=== PATIENT | male | born 1955 | race Caucasian/White ===

== ENCOUNTER 2018-10-03 10:11 | Day surgery (SDC) | payer OTHER ==
[~2018-10-03 10:11] MED LIST: BESIFLOXACIN HCL 0.6% OPH SUSP 5 ML BOTTLE OD PRN; CHONDR SU A NA/HYALUR INTRAOC KIT (SURGICARE) ONE; CYCLOPENTOLATE 0.2%/PHENYLEPHRINE 1% OPH SOLN 2 ML OD PRN; EPINEPHRINE INJ/PF 1 MG/1 ML AMPULE ONE; KETOROLAC TROMETHAMINE 0.45% 4 DROP/0.4 ML DROPERETTE OD PRN; LIDOCAINE 1% INJ-PF (10 MG/ML) 30 ML SDV ONE; TETRACAINE HCL 0.5% OPH SOLN 0.6 ML DROPERETTE OD PRN; TOBRAMYCIN SULFATE/DEXAMETH OPH OINTMENT 3.5 GM ONE; TROPICAMIDE 1% OPH SOLN 3 ML OD PRN
== END 2018-10-03 11:03 | disposition home or self-care (01) ==
LOC: SC 10:11
PROVIDERS: ATTEND Ophthalmology
DX: R69 Illness, unspecified (principal)
CPT/HCPCS: J0171; J3490

== ENCOUNTER 2018-10-17 08:11 | Day surgery (SDC) | payer OTHER ==
[~2018-10-17 08:11] MED LIST changes: -BESIFLOXACIN HCL 0.6% OPH SUSP 5 ML BOTTLE OD PRN; -CHONDR SU A NA/HYALUR INTRAOC KIT (SURGICARE) ONE; -CYCLOPENTOLATE 0.2%/PHENYLEPHRINE 1% OPH SOLN 2 ML OD PRN; -EPINEPHRINE INJ/PF 1 MG/1 ML AMPULE ONE; -LIDOCAINE 1% INJ-PF (10 MG/ML) 30 ML SDV ONE; -TETRACAINE HCL 0.5% OPH SOLN 0.6 ML DROPERETTE OD PRN; -TOBRAMYCIN SULFATE/DEXAMETH OPH OINTMENT 3.5 GM ONE; -TROPICAMIDE 1% OPH SOLN 3 ML OD PRN
[2018-10-17] MEDS: TETRACAINE HCL 0.5% OPH SOLN 0.6 ML DROPERETTE OD PRN ×4 (08:58→09:37)
[2018-10-17] MEDS: TROPICAMIDE 1% OPH SOLN 3 ML OD PRN ×3 (08:59→09:22)
[2018-10-17] MEDS: CYCLOPENTOLATE 0.2%/PHENYLEPHRINE 1% OPH SOLN 2 ML OD PRN ×3 (08:59→09:22)
[2018-10-17] MEDS: BESIFLOXACIN HCL 0.6% OPH SUSP 5 ML BOTTLE OD PRN ×4 (08:59→10:02)
[2018-10-17] MEDS ORDERED: MIDAZOLAM 2 MG/2 ML INJ ONE (09:44)
[2018-10-17] MEDS ORDERED: FENTANYL CITRATE INJ/PF 100 MCG/2 ML AMPUL ONE (09:45)
[2018-10-17] MEDS: CHONDR SU A NA/HYALUR INTRAOC KIT (SURGICARE) ONE ×2 (09:49)
[2018-10-17] MEDS: EPINEPHRINE INJ/PF 1 MG/1 ML AMPULE ONE ×2 (09:49)
[2018-10-17] MEDS: LIDOCAINE 1% INJ-PF (10 MG/ML) 30 ML SDV ONE ×2 (09:49)
[2018-10-17] MEDS: TOBRAMYCIN SULFATE/DEXAMETH OPH OINTMENT 3.5 GM ONE ×2 (10:02)
== END 2018-10-17 10:48 | disposition home or self-care (01) ==
LOC: SC 08:11
PROVIDERS: ATTEND Ophthalmology
DX: H25.11 Age-related nuclear cataract, right eye (principal)
CPT/HCPCS: 66984; V2632; J2250; J3490 ×3; J0171; J3010; 142

== ENCOUNTER 2018-10-31 10:50 | Day surgery (SDC) | payer OTHER ==
[~2018-10-31 10:50] MED LIST changes: +BESIFLOXACIN HCL 0.6% OPH SUSP 5 ML BOTTLE OS PRN; +BUPIVACAINE HCL 0.75% INJ/PF (7.5 MG/1 ML) 10 ML SDV OS PRN; +CHONDR SU A NA/HYALUR INTRAOC KIT (SURGICARE) ONE; +CYCLOPENTOLATE 0.2%/PHENYLEPHRINE 1% OPH SOLN 2 ML OS PRN; +DORZOLAMIDE HCL 2%/TIMOLOL MALEAT 0.5% OPH SOLN 10 ML OS PRN; +EPINEPHRINE INJ/PF 1 MG/1 ML AMPULE ONE; -KETOROLAC TROMETHAMINE 0.45% 4 DROP/0.4 ML DROPERETTE OD PRN; +KETOROLAC TROMETHAMINE 0.45% 4 DROP/0.4 ML DROPERETTE OS PRN; +LIDOCAINE 1% INJ-PF (10 MG/ML) 30 ML SDV ONE; +LIDOCAINE 4% INJ/PF (40 MG/ML) 5 ML AMPUL OS PRN; +TETRACAINE HCL 0.5% OPH SOLN 0.6 ML DROPERETTE OS PRN; +TOBRAMYCIN SULFATE/DEXAMETH OPH OINTMENT 3.5 GM ONE; +TROPICAMIDE 1% OPH SOLN 3 ML OS PRN
--- NOTE | 2018-10-31 15:46 | EKG REPORT ---
SEVERITY:- ABNORMAL ECG - ATRIAL FIBRILLATION, V-RATE 50-69 VENTRICULAR PREMATURE COMPLEX : Confirmed by: Mac Bazan MD 31-Oct-2018 15:45:48
== END 2018-10-31 12:20 | disposition home or self-care (01) ==
LOC: SC 10:50
PROVIDERS: ATTEND Ophthalmology
DX: I49.3 Ventricular premature depolarization (principal); I48.91 Unspecified atrial fibrillation
CPT/HCPCS: 93005; 93010; J0171; J3490

== ENCOUNTER 2018-11-14 13:51 | Emergency (ER) | payer OTHER ==
--- NOTE | 2018-11-14 14:20 | ER Document Report ---
ED Medical Screen (RME) - General Chief Complaint: Groin Pain Stated Complaint: SICK Time Seen by Provider: 11/14/18 14:18 Primary Care Provider: CESAR BARRERA [Primary Care Provider] - Follow up as needed Mode of Arrival: Ambulatory Information source: Patient Notes: Patient states he was sent here for evaluation of swollen area to right groin. Patient states he has had the swollen area for the past 3 weeks. Patient states pain comes and goes. Patient was told that he needed to be evaluated for hernia. Patient denies any testicular pain swelling, penile drainage or discharge. Patient denies any abdominal tenderness. I have greeted and performed a rapid initial assessment of this patient. A comprehensive ED assessment and evaluation of the patient, analysis of test results and completion of the medical decision making process will be conducted by additional ED providers. TRAVEL OUTSIDE OF THE [place] IN LAST 30 DAYS: No - Related Data Allergies/Adverse Reactions: No Known Allergies Allergy (Verified 11/14/18 14:16) Past Medical History - Social History Chew tobacco use (# tins/day): No Frequency of alcohol use: None Drug Abuse: None - Past Medical History Cardiac Medical History: Denies: Hx Heart Attack, Hx Hypertension Pulmonary Medical History: Denies: Hx Asthma Neurological Medical History: Denies: Hx Cerebrovascular Accident, Hx Seizures Renal/ Medical History: Denies: Hx Peritoneal Dialysis GI Medical History: Denies: Hx Hepatitis, Hx Hiatal Hernia, Hx Ulcer Infectious Medical History: Denies: Hx Hepatitis Past Surgical History: Denies: Hx Open Heart Surgery, Hx Pacemaker Physical Exam - General Notes: Concerned about swelling to right inguinal area, area is nontender this time Doctor's Discharge - Discharge Referrals: BRUCE,CESAR [Primary Care Provider] - Follow up as needed
--- NOTE | 2018-11-14 19:45 | RADIOLOGY REPORT (SQ) ---
EXAM DESCRIPTION: U/S ABDOMEN LIMITED W/O DOP COMPLETED DATE/TIME: 11/14/2018 7:26 pm REASON FOR STUDY: right groin pain, r/o hernia COMPARISON: None. TECHNIQUE: Dynamic and static grayscale images acquired of the localized site of clinical concern an d recorded on PACS. Additional selected color Doppler and spectral images recorded. SITE OF CONCERN: Right groin LIMITATIONS: None. FINDINGS: SKIN AND SUBCUTANEOUS TISSUES: No masses. No fluid collections. No edema. No foreign julio s. DEEP SOFT TISSUES/MUSCLES: No demonstrated fascial discontinuity despite provocative maneuvers. No m asses. VASCULAR: No areas of abnormal vascularity. OTHER: No other significant finding. IMPRESSION: No evidence of direct or indirect inguinal hernia. TECHNICAL DOCUMENTATION: JOB ID: [id number] [employer]- All Rights Reserved Reading location - IP/workstation name: [email or web address]
--- NOTE | 2018-11-14 19:57 | ER Document Report ---
ED General - General Chief Complaint: Groin Pain Stated Complaint: SICK Time Seen by Provider: 11/14/18 14:18 Primary Care Provider: PRIYANK COOMBS MD [[facility] ST[facility]] - Follow up as needed [facility] [[facility] - Follow up as needed Mode of Arrival: Ambulatory Notes: Patient is a 63-year-old male presents to the emergency department for generalized right groin pain. States has had this pain intermittently for the last 3 weeks. [facility] and [facility] told him he had to come to the emergency room. Patient's denying any dysuria, testic ular pain, redness, swelling. He is also denying any penile discharge. Patient denies any abdominal pain. Denies any heavy lifting, twisting, movement, trauma. TRAVEL OUTSIDE OF THE [place] IN LAST 30 DAYS: No - Related Data Allergies/Adverse Reactions: No Known Allergies Allergy (Verified 11/14/18 14:16) Past Medical History - General Information source: Patient - Social History Smoking Status: Never Smoker Chew tobacco use (# tins/day): No Frequency of alcohol use: None Drug Abuse: None Family History: Reviewed & Not Pertinent Patient has suicidal ideation: No Patient has homicidal ideation: No - Past Medical History Cardiac Medical History: Denies: Hx Heart Attack, Hx Hypertension Pulmonary Medical History: Denies: Hx Asthma Neurological Medical History: Denies: Hx Cerebrovascular Accident, Hx Seizures Renal/ Medical History: Denies: Hx Peritoneal Dialysis GI Medical History: Denies: Hx Hepatitis, Hx Hiatal Hernia, Hx Ulcer Infectious Medical History: Denies: Hx Hepatitis Past Surgical History: Denies: Hx Open Heart Surgery, Hx Pacemaker Review of Systems - Review of Systems Constitutional: denies: Fever EENT: No symptoms reported Cardiovascular: No symptoms reported Respiratory: No symptoms reported Gastrointestinal: See HPI Genitourinary: See HPI Male Genitourinary: See HPI Musculoskeletal: No symptoms reported Skin: No symptoms reported Hematologic/Lymphatic: No symptoms reported Neurological/Psychological: No symptoms reported Physical Exam - Vital signs Vitals: Temp Pulse Resp BP Pulse Ox 97.9 F 63 16 135/98 H 100 11/14/18 14:14 11/14/18 14:14 11/14/18 14:14 11/14/18 14:14 11/14/18 14:14 - Notes Notes: GENERAL: Alert, interacts well. No acute distress. HEAD: Normocephalic, atraumatic. EYES: Pupils equal, round, and reactive to light. Extraocular movements intact. ENT: Oral mucosa moist, tongue midline. NECK: Full range of motion. Supple. Trachea midline. LUNGS: Clear to auscultation bilaterally, no wheezes, rales, or rhonchi. No respiratory distress. HEART: Regular rate and rhythm. No murmur ABDOMEN: Soft, non-tender. Non-distended. Bowel sounds present in all 4 quadrants. No McBurney's point tenderness, no Hernandez sign. Well-healed surgical scar noted from patient's umbilicus down to suprapubic region. No pain around scar. EXTREMITIES: Moves all 4 extremities spontaneously. No edema, normal radial and dorsalis pedis pulses bilaterally. No cyanosis. BACK: no cervical, thoracic, lumbar midline tenderness. No saddle anesthesia, normal distal neurovascular exam. NEUROLOGICAL: Alert and oriented x3. Normal speech. cranial nerves II through XII grossly intact PSYCH: Normal affect, normal mood. SKIN: Warm, dry, normal turgor. No rashes or lesions noted. Genitalia: Robbi Zendejas RN, circumcised penis no active discharge at the meatus, bilateral testicles nonerythematous non-tender. Generalized right pelvic pain noted. No left pelvic pain noted. Patient states right pelvic region appears swollen to him. I do not appreciate any swollen skin right or left pelvic region. Course - Re-evaluation Re-evalutation: 11/14/18 19:58 Abdomen Ultrasound 11/14/18 17:46 IMPRESSION: No evidence of direct or indirect inguinal hernia. Patient is denied any pain medication in the emergency room. States overall the right groin pain actually feels better upon reassessment and discussion of ultrasound results. I discussed with patient that the initial ultrasound shows no signs of direct or indirect inguinal hernia. His generalized abdominal exam continues to be benign with no pain noted. Also bilateral testicular exam continues to be benign. Discussed close follow-up with primary care provider and phone numbers for surgery referral. Discussed there may be a small hernia that is not seen on ultrasound. She will follow-up with surgery. Patient voices understanding, stable for discharge. - Vital Signs Vital signs: Temp Pulse Resp BP Pulse Ox 97.9 F 63 16 135/98 H 100 11/14/18 14:14 11/14/18 14:14 11/14/18 14:14 11/14/18 14:14 11/14/18 14:14 Discharge - Discharge Clinical Impression: Right groin pain Condition: Stable Disposition: HOME, SELF-CARE Additional Instructions: As we discussed you have been seen and treated in the emergency department for your right groin pain. Your ultrasound revealed no signs of obvious hernias. I have provided you a phone number for generalized surgeon. Please follow-up with them as there may be a small hernia that was not seen on ultrasound. He would be able to provide you with further testing. Please also follow-up with your primary care provider. Please return to the emergency room should you have any concerns. Referrals: [facility] [[facility] - Follow up as needed PRIYANK COOMBS MD [AIMEE STARR] - Follow up as needed
[2018-11-14 20:08] VITALS: BP 148/78
== END 2018-11-14 20:06 | disposition home or self-care (01) ==
LOC: ER 13:51
DX: R10.2 Pelvic and perineal pain (principal)
CPT/HCPCS: 76705; 99283